=== PATIENT | male | born 1955 | race Caucasian/White ===

== ENCOUNTER 2019-05-23 03:57 | Observation (INO) | payer OTHER ==
[2019-05-23] MEDS ORDERED: ONDANSETRON 4 MG INJ IV (05:30)
[2019-05-23] MEDS ORDERED: NITROGLYCERIN (SL) 0.4 MG TAB SL (05:30)
[2019-05-23] MEDS ORDERED: LORAZEPAM 2 MG INJ IV (05:30)
[2019-05-23] MEDS ORDERED: NACL 0.9% 3 ML SYG IV (05:30)
[2019-05-23] MEDS ORDERED: ACETAMINOPHEN 325 MG TAB PO (05:30)
[2019-05-23 05:53] LABS: ADD MAN DIFF? NO
[2019-05-23 05:59] LABS: BASOPHIL # 0.1 10^3/ul (0.0-0.1); BASOPHILS % 1.1 % (0.0-2.0); EOSINOPHILS # 0.1 10^3/ul (0.0-0.5); EOSINOPHILS % 2.6 % (0.0-7.0); HEMATOCRIT 37.3 % (42.0-52.0); HEMOGLOBIN 12.3 g/dl (14.0-18.0); LYMPHOCYTES # 2.1 10^3/ul (0.8-2.9); LYMPHOCYTES % 38.3 % (15.0-51.0); MEAN CORPUSCULAR HEMOGLOBIN 32.5 pg (29.0-33.0); MEAN CORPUSCULAR VOLUME 98.7 fl (82.0-101.0); MEAN PLATELET VOLUME 9.6 fl (7.4-10.4); MONOCYTE # 0.6 10^3/ul (0.3-0.9); NEUTROPHIL # 2.6 10^3/ul (1.6-7.5); NEUTROPHILS % 46.8 % (39.0-77.0); PLATELET COUNT 274 10^3/UL (140-415); RED BLOOD COUNT 3.78 10^6/ul (4.70-6.10); RED CELL DISTRIBUTION WIDTH 12.6 % (11.5-14.5)
[2019-05-23 05:59] LABS: WHITE BLOOD COUNT 5.5 10^3/ul (4.8-10.8)
[2019-05-23 06:16] LABS: HEMOGLOBIN A1C 5.4 % (0-5.9)
[2019-05-23 06:32] LABS: CREATINE KINASE 80 IU/L (23-200)
[2019-05-23] MEDS: SOD CHLORIDE 0.9% 1,000 ML IV ×2 (06:34→15:02)
[2019-05-23 06:39] LABS: ALANINE AMINOTRANSFERASE 30 IU/L (13-69); ALBUMIN 3.1 g/dl (3.3-4.9); ALBUMIN/GLOBULIN RATIO 1.06; ALKALINE PHOSPHATASE 82 IU/L (42-121); ANION GAP 6 (5-13); ASPARTATE AMINO TRANSFERASE 21 IU/L (15-46); BILIRUBIN,INDIRECT 0.2 mg/dl (0-1.1); BILIRUBIN,TOTAL 0.2 mg/dl (0.2-1.3); BLOOD UREA NITROGEN 21 mg/dl (7-20); CALCIUM 8.8 mg/dl (8.4-10.2); CARBON DIOXIDE 30 mmol/L (21-31); CHLORIDE 103 mmol/L (97-110); CHOL/HDL RATIO 3.4 RATIO; CHOLESTEROL 122 mg/dl (100-200); Estimated GFR > 60 mL/min (>60); GLUCOSE 98 mg/dl (70-220); HDL CHOLESTEROL 35 mg/dl (30-78); LDL CHOLESTEROL,CALCULATED 64 mg/dl; MAGNESIUM 2.2 mg/dl (1.7-2.5); SODIUM 139 mmol/L (135-144); TRIGLYCERIDES 113 mg/dl (0-149)
[2019-05-23 06:53] LABS: FREE T4 (FREE THYROXINE) 1.11 ng/dl (0.78-2.44)
[2019-05-23 07:51] LABS: CK INDEX 0.6; CK-MB 0.49 ng/ml (0.0-2.4); TROPONIN-I < 0.012 ng/ml (0.000-0.120)
[2019-05-23] MEDS: ASPIRIN 81 MG TAB PO (08:35)
[2019-05-23] MEDS: FAMOTIDINE 20 MG TAB PO (08:35)
[2019-05-23] MEDS: ESCITALOPRAM 10 MG TAB PO (08:45)
[2019-05-23] MEDS: MIRTAZAPINE 15 MG TAB PO (08:45)
[2019-05-23] MEDS: traZODone 100 MG TAB PO (08:45)
[2019-05-23] MEDS: ENOXAPARIN 40 MG/0.4 ML SYG SC (08:48)
[2019-05-23] MEDS: METOPROLOL 25 MG TAB PO (09:00)
[2019-05-23] MEDS ORDERED: REGADENOSON 0.4 MG/5 ML SYG (10:24)
[2019-05-23] MEDS: LORAZEPAM 0.5 MG TAB PO (11:33)
[2019-05-23] MEDS: APIXABAN 5 MG TABLET PO ×2 (11:33→18:37)
[2019-05-23 12:32] LABS: CREATINE KINASE 83 IU/L (23-200)
[2019-05-23 12:45] LABS: CK INDEX 0.6; CK-MB 0.46 ng/ml (0.0-2.4); TROPONIN-I < 0.012 ng/ml (0.000-0.120)
[2019-05-23] MEDS: morphine 2 MG INJ IV (13:44)
[2019-05-23] MEDS ORDERED: ATORVASTATIN 80 MG TAB PO (21:00)
== END 2019-05-23 19:06 | disposition home or self-care (01) ==
LOC: 6WM 03:57
DX: R07.89 Other chest pain (principal); I48.2 Chronic atrial fibrillation; F32.9 Major depressive disorder, single episode, unspecified; I10 Essential (primary) hypertension; E78.5 Hyperlipidemia, unspecified; G89.29 Other chronic pain; M54.9 Dorsalgia, unspecified; Z79.01 Long term (current) use of anticoagulants
CPT/HCPCS: 78452; 80053; 80061; 82550; 82553; 83036; 83735; 84439; 84443; 84484; 85025; 93017; G0378